=== PATIENT | male | born 1995 | race African-American/Black ===

== ENCOUNTER 2019-11-22 09:56 | Emergency (ER) | payer SELFPAY ==
[~2019-11-22] VITALS: Ht 182.9 cm; Wt 70.7 kg
[2019-11-22 10:05] VITALS: BP 125/77
[2019-11-22] MEDS ORDERED: LIDOCAINE-MPF 1%, 5ML INFIL ONE (10:30)
[2019-11-22] MEDS ORDERED: LIDOCAINE-MPF 1%, 5ML ONE (10:35)
[2019-11-22] MEDS ORDERED: NEOSPORIN OINT. PKT 1 PACKET ONE (11:15)
== END 2019-11-22 11:35 | disposition home or self-care (01) ==
LOC: ED 11:10
DX: L03.012 Cellulitis of left finger (principal); L03.811 Cellulitis of head [any part, except face]; L03.113 Cellulitis of right upper limb; L02.512 Cutaneous abscess of left hand
CPT/HCPCS: 10160; 99284

== ENCOUNTER 2020-01-03 17:09 | Emergency (ER) | payer OTHER ==
[~2020-01-03] VITALS: Ht 182.9 cm; Wt 69.7 kg
--- NOTE | 2020-01-03 17:34 | NUR ---
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
[2020-01-03] MEDS ORDERED: HYDROcodone/APAP 5/325 TABLET ONE (17:55)
[2020-01-03] MEDS ORDERED: HYDROcodone/APAP 5/325 TABLET PO ONE (18:00)
[2020-01-03 18:42] VITALS: BP 153/101
--- NOTE | 2020-01-03 18:42 | NUR ---
Patient/Caregiver given discharge instructions and they have confirmed that they understand the instructions. Patient ambulatory with steady gait. Denied additional questions or needs at this time.
== END 2020-01-03 18:45 | disposition home or self-care (01) ==
LOC: ED 17:30
DX: H57.11 Ocular pain, right eye (principal); M54.2 Cervicalgia; F17.200 Nicotine dependence, unspecified, uncomplicated
CPT/HCPCS: 99283

== ENCOUNTER 2020-01-12 09:57 | Emergency (ER) | payer OTHER ==
[~2020-01-12] VITALS: Ht 182.9 cm; Wt 69.7 kg
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
[2020-01-12] MEDS ORDERED: ONDANSETRON 2MG/ML, 2ML ONE (10:09)
[2020-01-12] MEDS ORDERED: MORPHINE SULFATE 4 MG/ML, 1ML ONE (10:10)
--- NOTE | 2020-01-12 10:28 | NUR ---
MEDICATED PER ORDERS, DISCUSSED PLAN OF CARE, PT VERBALIZED UNDERSTANDING
[2020-01-12 10:30] LABS: BASOPHILS # (AUTO) 0.04 x10^3/uL (0-0.1); BASOPHILS % (AUTO) 0 % (0-1); EOSINOPHILS # (AUTO) 0.07 x10^3/uL (0-0.4); EOSINOPHILS % (AUTO) 1 % (1-7); LYMPHOCYTES # (AUTO) 2.04 x10^3/uL (1-3.4); LYMPHOCYTES % (AUTO) 20 % (22-44); MD NO; MEAN CORPUSCULAR HEMOGLOBIN 29.5 pg (27.5-34.5); MEAN CORPUSCULAR HGB CONC 33.5 g/dL (33.2-36.2); MEAN CORPUSCULAR VOLUME 87.9 fL (81-97); MEAN PLATELET VOLUME 8.1 fL (7.4-10.4); MONOCYTES # (AUTO) 0.69 x10^3/uL (0.2-0.8); MONOCYTES % (AUTO) 7 % (2-9); NEUTROPHILS # (AUTO) 7.29 x10^3/uL (1.8-6.8); NEUTROPHILS % (AUTO) 72 % (42-75); PLATELET COUNT 343 x10^3/uL (130-400); RED BLOOD COUNT 4.66 x10^6/uL (4.38-5.82); RED CELL DISTRIBUTION WIDTH 13.9 % (9.4-14.8)
[2020-01-12] MEDS ORDERED: MORPHINE SULFATE 4 MG/ML, 1ML IVPush PRN (10:30)
[2020-01-12] MEDS ORDERED: SODIUM CHLORIDE FLUSH 10ML SYR IVF ONE (10:30)
[2020-01-12] MEDS ORDERED: ONDANSETRON 2MG/ML, 2ML IVPush ONE (10:30)
--- NOTE | 2020-01-12 10:34 | NUR ---
requested records from [facility].
[2020-01-12 10:43] LABS: ANION GAP 3 mmol/L (5-15); CALCIUM 8.7 mg/dL (8.5-10.1); CHLORIDE 108 mmol/L (98-107); CREATININE 0.92 mg/dL (0.7-1.3)
--- NOTE | 2020-01-12 10:58 | NUR ---
PT SLEEPING RESP EVEN AND UNLABORED
[2020-01-12] MEDS ORDERED: OMNIPAQUE 350 MG/ML, 100ML BOTTLE ONE (11:29)
--- NOTE | 2020-01-12 12:11 | NUR ---
pt asleep arouses to voice, vss
--- NOTE | 2020-01-12 12:25 | NUR ---
dr molina spoke with dr bright
--- NOTE | 2020-01-12 13:15 | NUR ---
Report from Rasheed GIBBONS. Pt resting in bed eating food,
[2020-01-12 14:05] VITALS: BP 100/50
== END 2020-01-12 14:07 | disposition home or self-care (01) ==
LOC: ED 11:21
DX: G44.319 Acute post-traumatic headache, not intractable (principal); H57.11 Ocular pain, right eye; F17.290 Nicotine dependence, other tobacco product, uncomplicated
CPT/HCPCS: 36415; 70450; 70487; 80048; 82040; 85025; 96374; 96375; 99285; J2270; J2405; Q9967